=== PATIENT | female | born 1995 | race Caucasian/White ===

== ENCOUNTER 2016-08-11 16:48 | Emergency (ER) | payer MEDICAID ==
[2016-08-11 17:05] VITALS: BP 106/68; PULSE 63; RESP 16; TEMP 98.2; O2SAT 98
--- NOTE | 2016-08-11 17:23 | EDPHY ---
H & P Smoking Status: Never smoked Time Seen by Provider: 08/11/16 16:55 HPI/ROS: CHIEF COMPLAINT: Right hamstring pain HISTORY OF PRESENT ILLNESS: 21-year-old female presents to the emergency department with pain in her right hamstring. Patient states early this morning , 6:00 a.m., she was just starting to work out and warm up and while she was bending forward with her right leg extended into the air she felt and heard popping in the posterior aspect of her right thigh. She immediately had pain. She now has pain with certain range of motion. She denies pain in her hip or groin. Denies pain in her right knee or ankle. She is able to walk with pain. She denies hitting her head. Denies abdominal pain. Denies any other concerns. She denies swelling in her right hamstring or leg. REVIEW OF SYSTEMS: Constitutional: No fever, no chills. Eyes: No double or blurry vision. ENT: No sore throat. Respiratory: No cough, no shortness of breath. Cardiac: No chest pain. Gastrointestinal: No abdominal pain, vomiting or diarrhea. Genitourinary: No dysuria. Musculoskeletal: No neck or back pain. Skin: No rashes. Neurological: No headache. (Abimbola Wilson) Past Medical/Surgical History: Negative (Abimbola Wilson) Social History: Single (Abimbola Wilson) Physical Exam: General Appearance: Alert, no distress. Eyes: Pupils equal and round. Extraocular motions are all intact. ENT: Mouth: Mucous membranes moist. Respiratory: No wheezing, rhonchi, or rales, lungs are clear to auscultation. Cardiovascular: Regular rate and rhythm. Gastrointestinal: Abdomen is soft and nontender, no masses, no rebound or guarding, bowel sounds normal. Neurological: Alert and oriented x 3, cranial nerves II through XII grossly intact Skin: Warm and dry, no rashes. Musculoskeletal: Nontender to palpate along the cervical, thoracic or lumbar spine. Neck is supple. Extremities: Tenderness with palpation to the right mid posterior hamstring. No palpable bony abnormality. Her semimembranosus and semitendinosus tendons are intact. She has full extension of her right leg. With flexing her right knee against resistance she is able to recreate the same pain in her right posterior calf. No signs of compartment syndrome. No obvious swelling. No ecchymosis. Her gait is not tested due to pain. Psychiatric: Patient is oriented X 3, there is no agitation. (Apoorva Wilsonrina Jani) Constitutional: Initial Vital Signs Temperature (C) 36.8 C 08/11/16 17:02 Heart Rate 63 08/11/16 17:02 Respiratory Rate 16 08/11/16 17:02 Blood Pressure 106/68 08/11/16 17:02 O2 Sat (%) 98 08/11/16 17:02 O2 Delivery Mode Room Air Allergies/Adverse Reactions: No Known Allergies Allergy (Unverified 08/05/14 13:39) Home Medications: Medication Instructions Recorded oxyCODONE/APAP 325 [Percocet 1 tab PO Q6 #10 tab 08/05/14 5/325] Medical Decision Making ED Course/Re-evaluation: 21-year-old female presents with right posterior thigh pain. Clinically I think this patient has a partial hamstring tear. I do not think imaging studies are indicated however. Patient understands that she should use crutches to assist with ambulating and will follow up with orthopedic surgeon on -call. She was also encouraged to use anti-inflammatories. She was comfortable with this plan. (Abimbola Wilson) I did not see this patient while she was in the emergency department however her care was discussed with the PA while the patient was in the department. I agree with treatment plan and management (Dimitris Marcial) Differential Diagnosis: Including but not limited to partial hamstring tear, tendinitis, tendon rupture , fracture (LaciemaicoAbimbola Gunter) Departure - Departure Disposition: Home, Routine, Self-Care Clinical Impression: Right hamstring muscle strain Qualifiers: Encounter type: initial encounter Qualified Code(s): S76.311A - Strain of muscle, fascia and tendon of the posterior muscle group at thigh level, right thigh, initial encounter Condition: Good Instructions: Hamstring Injury (ED) Additional Instructions: Ibuprofen 600 mg every 8 hours as needed for pain. Weightbear as tolerated or use crutches as needed. Follow up with orthopedic surgeon in 1 week to recheck. Referrals: Sadi Toledo MD [Medical Doctor] - 5-7 days, call for appt.
== END 2016-08-11 17:34 | disposition home or self-care (01) ==
DX: S76.311A Strain of muscle, fascia and tendon of the posterior muscle group at thigh level, right thigh, initial encounter (principal); X58.XXXA Exposure to other specified factors, initial encounter; Y93.89 Activity, other specified